=== PATIENT | male | born 1980 ===

== ENCOUNTER 2021-03-02 14:29 | Outpatient (CLI) | payer OTHER | END 2021-03-02 15:47 | disposition home or self-care (01) | LOC: OFIC 805 14:29 | PROVIDERS: ATTEND Otolaryngology Otology & Neurotology | DX: H65.22 Chronic serous otitis media, left ear (principal); H90.12 Conductive hearing loss, unilateral, left ear, with unrestricted hearing on the contralateral side; J30.89 Other allergic rhinitis ==